=== PATIENT | male | born 1995 | race Caucasian/White ===

== ENCOUNTER 2024-02-10 18:52 | Emergency (ER) | payer OTHER ==
[~2024-02-10 18:52] MED LIST: Iopamidol 370 76% 100 ML VIAL ONE
[2024-02-10] MEDS ORDERED: Morphine 4 MG/ML VIAL ONE (19:24)
[2024-02-10] MEDS ORDERED: Ondansetron PF 4 MG/2 ML Vial ONE (19:24)
[2024-02-10] MEDS ORDERED: Lidocaine 1% w/Epinephrine 1:200K 30 ML VIAL ONE (19:24)
[2024-02-10] MEDS ORDERED: Acetaminophen 500 MG TAB ONE (19:25)
[2024-02-10 19:41] LABS: ALT (SGPT) 25 U/L (8-55); AST (SGOT) 23 U/L (5-34); Albumin 4.2 g/dL (3.5-5.0); Alkaline Phosphatase 70 U/L (40-110); Anion Gap 13 mmol/L (10-20); BUN (Urea Nitrogen) 17 mg/dL (8.9-20.6); Bilirubin, Total 1.4 mg/dL (0.2-1.2); Calc. Creatinine Clearance 0 mL/min (70-130); Calcium 9.1 mg/dL (7.8-10.44); Carbon Dioxide 25 mmol/L (22-29); Chloride 105 mmol/L (98-107); Estimated GFR 95; Globulin 2.3 g/dL (2.4-3.5); Glucose 183 mg/dL (70-105); Potassium 3.2 mmol/L (3.5-5.1); Protein, Total 6.5 g/dL (6.0-8.3); Sodium 140 mmol/L (136-145)
[2024-02-10] MEDS ORDERED: Bacitracin 1 PK ONE (20:36)
[2024-02-10] MEDS ORDERED: Potassium Chloride 20 MEQ TAB ONE (21:13)
[2024-02-10 21:31] LABS: #Basophils 0.03 10x3/uL (0.0-0.2); #Eosinophils 0.08 10x3/uL (0.0-0.5); #Monocytes 0.42 10x3/uL (0.0-1.1); #Neutrophils 3.53 10x3/uL (1.5-8.4); %Basophils 0.5 % (0.0-2.0); %Eosinophils 1.4 % (0.0-6.0); %Lymphocytes 29.4 % (18.0-47.0); %Monocytes 7.3 % (0.0-10.0); %Neutrophils 61.1 % (40.0-75.0); Hematocrit 39.2 % (38.8-50.0); Hemoglobin 15.5 g/dL (13.5-17.5); Mean Corpuscular HGB CONC 39.5 g/dL (32.0-36.0); Mean Corpuscular Hemoglobin 33.2 pg (27.0-33.0); Mean Corpuscular Volume 83.9 fL (81.2-95.1); Mean Platelet Volume 9.1 fL (7.4-10.4); Platelet Count 304 10x3/uL (150-450); Red Blood Cell (RBC) Count 4.67 10x6/uL (4.32-5.72); White Blood Cell (WBC) Count 5.8 10x3/uL (3.5-10.5)
== END 2024-02-10 21:23 | disposition home or self-care (01) ==
LOC: CSHERS 18:52
DX: S06.0X0A Concussion without loss of consciousness, initial encounter (principal); S62.101A Fracture of unspecified carpal bone, right wrist, initial encounter for closed fracture; S01.111A Laceration without foreign body of right eyelid and periocular area, initial encounter; S20.211A Contusion of right front wall of thorax, initial encounter; R79.89 Other specified abnormal findings of blood chemistry; W55.12XA Struck by horse, initial encounter; Z55.6 Problems related to health literacy
CPT/HCPCS: 12011; 29105; 70450; 70486; 71260; 72125; 80053; 85025; 93005; 96374; 96375; J2272; J2405; Q9967